=== PATIENT | female | born 1990 | race American Indian/Alaskan Native ===

== ENCOUNTER 2017-10-21 16:11 | Emergency (ER) | payer MEDICAID ==
[2017-10-21 16:19] VITALS: BP 110/72
[2017-10-21 16:43] LABS: Bacteria,Urine 1+ /HPF (Negative); Bilirubin,Urine NEG (Negative); Blood,Urine NEG (Negative); Color,Urine Yellow (Yellow); Mucus,Urine 2+ /HPF; Protein,Urine <15 mg/dL mg/dL (Negative); Urobilinogen,Urine < 2.0 mg/dL (<2.0)
[2017-10-21 16:45] LABS: HCG Qualitative,Urine Negative (Negative)
--- NOTE | 2017-10-21 17:32 | Emergency Department Report ---
ED Abdominal Pain HPI - General Chief Complaint: Abdominal Pain Stated Complaint: LEFT SIDE PAIN Time Seen by Provider: 10/21/17 17:21 Source: patient Mode of arrival: Ambulatory Limitations: No Limitations - History of Present Illness Initial Comments: Patient is a 27-year-old female who is presenting with some epigastric discomfort. Patient states for the last 3 nights she has had burning sensation in the epigastrium and bilateral upper quadrants left greater than right. Patient states she vomited once 3 days ago and stated it was acid sensation in her mouth. Patient states this burning sensation in his 8 at 10 in severity. The patient denies any increased pain after eating. She denies any fevers chills diarrhea or cough cold congestion sore throat or dysuria or vaginal discharge. - Related Data Previous Rx's Medication Instructions Recorded Last Taken Type Ondansetron [Zofran Odt] 4 mg PO Q8HR PRN #10 tab.rapdis 10/21/17 Unknown Rx Pantoprazole [Protonix TAB] 20 mg PO DAILY #20 tablet. 10/21/17 Unknown Rx traMADol [Ultram] 50 mg PO Q6HR PRN #10 tablet 10/21/17 Unknown Rx Allergies Allergy/AdvReac Type Severity Reaction Status Date / Time No Known Allergies Allergy Unverified 10/21/17 16:16 ED Review of Systems ROS: Stated complaint: LEFT SIDE PAIN Other details as noted in HPI Comment: All other systems reviewed and negative ED Past Medical Hx - Past Medical History Previous Medical History?: No - Surgical History Additional Surgical History: c/s - Social History Smoking Status: Never Smoker Substance Use Type: None - Medications Home Medications: Home Medications Medication Instructions Recorded Confirmed Last Taken Type Ondansetron [Zofran Odt] 4 mg PO Q8HR PRN #10 tab.rapdis 10/21/17 Unknown Rx Pantoprazole [Protonix TAB] 20 mg PO DAILY #20 tablet. 10/21/17 Unknown Rx traMADol [Ultram] 50 mg PO Q6HR PRN #10 tablet 10/21/17 Unknown Rx ED Physical Exam - General Limitations: No Limitations General appearance: alert, in no apparent distress - Head Head exam: Present: atraumatic, normocephalic - Eye Eye exam: Present: normal appearance - ENT ENT exam: Present: mucous membranes moist - Neck Neck exam: Present: normal inspection - Respiratory Respiratory exam: Present: normal lung sounds bilaterally. Absent: respiratory distress, wheezes, rales, rhonchi - Cardiovascular Cardiovascular Exam: Present: regular rate, normal rhythm. Absent: systolic murmur, diastolic murmur, rubs, gallop - GI/Abdominal GI/Abdominal exam: Present: soft, tenderness (mild epigastric and LUQ pain), normal bowel sounds. Absent: distended, guarding, rebound, rigid - Extremities Exam Extremities exam: Present: normal inspection - Back Exam Back exam: Present: normal inspection - Neurological Exam Neurological exam: Present: alert, oriented X3 - Psychiatric Psychiatric exam: Present: normal affect, normal mood - Skin Skin exam: Present: warm, dry, intact, normal color. Absent: rash ED Course Vital Signs 10/21/17 16:16 Temperature 98.6 F Pulse Rate 78 Respiratory 15 Rate Blood Pressure 110/72 O2 Sat by Pulse 97 Oximetry ED Medical Decision Making - Lab Data Lab Results 10/21/17 Range/Units 16:15 Urine Color Yellow (Yellow) Urine Turbidity Clear (Clear) Urine pH 5.0 (5.0-7.0) Ur Specific Brothers 1.025 (1.003-1.030) Urine Protein <15 mg/dl (Negative) mg/dL Urine Glucose (UA) Neg (Negative) mg/dL Urine Ketones Neg (Negative) mg/dL Urine Blood Neg (Negative) Urine Nitrite Neg (Negative) Urine Bilirubin Neg (Negative) Urine Urobilinogen < 2.0 (<2.0) mg/dL Ur Leukocyte Esterase Sm (Negative) Urine WBC (Auto) 1.0 (0.0-6.0) /HPF Urine RBC (Auto) 2.0 (0.0-6.0) /HPF U Epithel Cells (Auto) 2.0 (0-13.0) /HPF Urine Bacteria (Auto) 1+ (Negative) /HPF Urine Mucus 2+ /HPF Urine HCG, Qual Negative (Negative) - Medical Decision Making Patient's symptoms most consistent with GERD. Patient be started on Protonix and referred to GI. Patient discharged in stable condition. Critical care attestation.: If time is entered above; I have spent that time in minutes in the direct care of this critically ill patient, excluding procedure time. ED Disposition Clinical Impression: GERD (gastroesophageal reflux disease) Qualifiers: Esophagitis presence: esophagitis presence not specified Qualified Code(s): K21.9 - Gastro-esophageal reflux disease without esophagitis Disposition: TO HOME OR SELFCARE Is pt being admited?: No Does the pt Need Aspirin: No Condition: Stable Instructions: Peptic Ulcer (ED), Gastroesophageal Reflux Disease (ED), Diet for Ulcers and Gastritis (ED) Prescriptions: Ondansetron [Zofran Odt] 4 mg PO Q8HR PRN #10 tab.rapdis PRN Reason: Nausea And Vomiting Pantoprazole [Protonix TAB] 20 mg PO DAILY #20 tablet. traMADol [Ultram] 50 mg PO Q6HR PRN #10 tablet PRN Reason: Pain Referrals: ISMAEL ESPINOSA MD [Staff Physician] - 3-5 Days
== END 2017-10-21 17:39 | disposition home or self-care (01) ==
LOC: ED 16:11
DX: K21.9 Gastro-esophageal reflux disease without esophagitis (principal)
CPT/HCPCS: 81001; 81025; 99283

== ENCOUNTER 2017-10-25 22:31 | Emergency (ER) | payer MEDICAID ==
[2017-10-25] MEDS ORDERED: NACL 0.9% 1000 ML 1,000 ML IV ONE (22:49)
[2017-10-25 23:07] LABS: Basophils % (Auto) 0.7 % (0.0-1.8); Eosinophils # (Auto) 0.2 K/mm3 (0.0-0.4); Eosinophils % (Auto) 3.7 % (0.0-4.3); Hematocrit 38.7 % (30.3-42.9); Hemoglobin 13.2 gm/dl (10.1-14.3); Lymphocytes # (Auto) 1.7 K/mm3 (1.2-5.4); Lymphocytes % (Auto) 25.8 % (13.4-35.0); Mean Corpuscular HGB Conc 34 % (30-34); Mean Corpuscular Hemoglobin 29 pg (28-32); Mean Corpuscular Volume 85 fl (79-97); Monocytes # (Auto) 0.6 K/mm3 (0.0-0.8); Monocytes % (Auto) 8.6 % (0.0-7.3); Platelet Count 189 K/mm3 (140-440); Red Blood Count 4.54 M/mm3 (3.65-5.03); Red Cell Distribution Width 13.5 % (13.2-15.2)
[2017-10-25 23:21] LABS: Alanine Aminotransferase 17 units/L (7-56); Albumin 4.1 g/dL (3.9-5); BUN/Creatinine Ratio 19; Blood Urea Nitrogen 13 mg/dL (7-17); Hemolysis Index 18
[2017-10-26 00:06] LABS: HCG Qualitative,Urine Negative (Negative)
[2017-10-26] MEDS ORDERED: MORPHINE IV ONE (00:51)
[2017-10-26] MEDS ORDERED: ZOFRAN IV ONE (00:51)
[2017-10-26] MEDS ORDERED: PEPCID IV ONE (00:51)
--- NOTE | 2017-10-26 00:51 | Emergency Department Report ---
ED Abdominal Pain HPI - General Chief Complaint: Abdominal Pain Stated Complaint: ABD PAIN Time Seen by Provider: 10/25/17 23:54 Source: patient Mode of arrival: Ambulatory Limitations: No Limitations - History of Present Illness Initial Comments: Healthy 27-year-old female with epigastric pain radiating to the left flank with nausea vomiting diarrhea. Symptoms are worse at night. Seen recently in the ED. For dinner, she ate fried plantain, steak and rice. Complaint: abdominal pain -: Gradual, week(s) (1) Location: epigastric Radiation: L flank Migration to: L flank Severity: moderate Quality: cramping, sharp Consistency: intermittent Worsens With: other (worse at night) Associated Symptoms: nausea, vomiting, diarrhea - Related Data Previous Rx's Medication Instructions Recorded Last Taken Type Ondansetron [Zofran Odt] 4 mg PO Q8HR PRN #10 tab.rapdis 10/21/17 Unknown Rx Pantoprazole [Protonix TAB] 20 mg PO DAILY #20 tablet. 10/21/17 Unknown Rx traMADol [Ultram] 50 mg PO Q6HR PRN #10 tablet 10/21/17 Unknown Rx HYDROcodone/APAP 5-325 [[place] 1 each PO Q6HR PRN #15 tablet 10/26/17 Unknown Rx 5/325] Promethazine [Phenergan TAB] 25 mg PO Q6HR PRN #20 tab 10/26/17 Unknown Rx Allergies Allergy/AdvReac Type Severity Reaction Status Date / Time No Known Allergies Allergy Verified 10/25/17 22:45 ED Review of Systems ROS: Stated complaint: ABD PAIN Other details as noted in HPI Comment: All other systems reviewed and negative Constitutional: denies: fever, malaise Respiratory: denies: cough Cardiovascular: denies: chest pain ED Past Medical Hx - Past Medical History Previous Medical History?: No - Surgical History Past Surgical History?: Yes Additional Surgical History: c/s - Social History Smoking Status: Never Smoker Substance Use Type: None - Medications Home Medications: Home Medications Medication Instructions Recorded Confirmed Last Taken Type Ondansetron [Zofran Odt] 4 mg PO Q8HR PRN #10 tab.rapdis 10/21/17 Unknown Rx Pantoprazole [Protonix TAB] 20 mg PO DAILY #20 tablet. 10/21/17 Unknown Rx traMADol [Ultram] 50 mg PO Q6HR PRN #10 tablet 10/21/17 Unknown Rx HYDROcodone/APAP 5-325 [[place] 1 each PO Q6HR PRN #15 tablet 10/26/17 Unknown Rx 5/325] Promethazine [Phenergan TAB] 25 mg PO Q6HR PRN #20 tab 10/26/17 Unknown Rx ED Physical Exam - General Limitations: No Limitations General appearance: alert, in no apparent distress - Head Head exam: Present: atraumatic, normocephalic - Eye Eye exam: Present: normal appearance - ENT ENT exam: Present: mucous membranes moist - Neck Neck exam: Present: normal inspection - Respiratory Respiratory exam: Present: normal lung sounds bilaterally. Absent: respiratory distress, wheezes, rales, rhonchi - Cardiovascular Cardiovascular Exam: Present: regular rate, normal rhythm. Absent: systolic murmur, diastolic murmur, rubs, gallop - GI/Abdominal GI/Abdominal exam: Present: soft, tenderness (epigastric and right upper quadrant tenderness with voluntary guarding), guarding, normal bowel sounds. Absent: distended, rebound, rigid - Extremities Exam Extremities exam: Present: normal inspection - Back Exam Back exam: Present: normal inspection - Neurological Exam Neurological exam: Present: alert, oriented X3 - Psychiatric Psychiatric exam: Present: normal affect, normal mood - Skin Skin exam: Present: warm, dry, intact, normal color. Absent: rash ED Course Vital Signs 10/25/17 10/25/17 10/25/17 22:29 22:45 23:39 Temperature 97.7 F 97.7 F 97.7 F Pulse Rate 67 70 67 Respiratory 18 16 18 Rate Blood Pressure 122/76 122/76 Blood Pressure 114/73 [Left] O2 Sat by Pulse 97 96 99 Oximetry 10/26/17 10/26/17 10/26/17 00:00 01:16 02:00 Temperature Pulse Rate Respiratory Rate Blood Pressure 114/73 102/72 110/78 Blood Pressure [Left] O2 Sat by Pulse 97 99 100 Oximetry ED Medical Decision Making - Lab Data Result diagrams: 10/25/17 22:51 10/25/17 22:51 - Medical Decision Making Recurrent epigastric pain with nausea vomiting and diarrhea. Differential diagnosis includes peptic ulcer disease versus biliary colic versus PUD versus IBS. Cholelithiasis present on ultrasound today without acute cholecystitis. I do suspect an element of biliary colic. She does not appear to be at risk for peptic ulcer disease although PUD is a possibility with recurrent epigastric pain at night. 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 I will continue asked her to continue Protonix. Also encouraged low- fat diet. I prescribed [place] and promethazine. Critical care attestation.: If time is entered above; I have spent that time in minutes in the direct care of this critically ill patient, excluding procedure time. ED Disposition Clinical Impression: Cholelithiasis Disposition: DC-01 TO HOME OR SELFCARE Is pt being admited?: No Does the pt Need Aspirin: No Condition: Stable Instructions: Biliary Colic (ED) Prescriptions: HYDROcodone/APAP 5-325 [[place] 5/325] 1 each PO Q6HR PRN #15 tablet PRN Reason: Pain Promethazine [Phenergan TAB] 25 mg PO Q6HR PRN #20 tab PRN Reason: Nausea Referrals: BERHANE WOLF DO [Staff Physician] - 3-5 Days Time of Disposition: 02:31
[2017-10-26 01:22] LABS: Bilirubin,Urine NEG (Negative); Blood,Urine SM (Negative); Color,Urine Yellow (Yellow); Mucus,Urine FEW /HPF; Protein,Urine <15 mg/dL mg/dL (Negative); RBC,Urine < 1.0 /HPF (0.0-6.0); Urobilinogen,Urine < 2.0 mg/dL (<2.0)
--- NOTE | 2017-10-26 01:57 | Ultrasound Report ---
FINAL REPORT PROCEDURE: US ABDOMEN COMPLETE TECHNIQUE: Real-time sonography in multiple planes of the gallbladder fossa and CBD with imaging of the adjacent liver, pancreas, and right kidney was performed with image documentation. CPT 07617 HISTORY: epigastric pain COMPARISON: No prior studies are available for comparison. FINDINGS: Liver: Normal size and echotexture with no evidence of cystic or solid mass lesion. Gallbladder: There is a gallstone. There is sludge. Gallbladder wall measures 2.7 millimeters.. Intrahepatic bile ducts: Normal . Extrahepatic bile ducts: Common bile duct measures 2.9 millimeters.. Pancreas: Normal as visualized with suboptimal depiction of the pancreatic tail. Right kidney: There is a nonobstructing stone. There is no hydronephrosis.. Other: No free fluid. IMPRESSION: There is cholelithiasis and sludge. There is no cholecystitis or biliary ductal dilatation. Nonobstructing stone right kidney.
[2017-10-26 02:22] VITALS: BP 110/78
== END 2017-10-26 03:03 | disposition home or self-care (01) ==
LOC: ED 22:31
DX: K80.20 Calculus of gallbladder without cholecystitis without obstruction (principal)
CPT/HCPCS: 36415; 76700; 80053; 81001; 81025; 83690; 85025; 96361; 96374; 96375; 99284; J2270; J2405; J7030

== ENCOUNTER 2017-11-14 06:26 | Day surgery (SDC) | payer MEDICAID ==
[~2017-11-14 06:26] MED LIST: ANCEF/STERILE WATER 2 GM/20 ML 2 GM/20 ML SYRINGE IV SCH
[2017-11-14] MEDS ORDERED: ceFAZolin 2 GM in NACL 0.9% 100 ML IV ONE (07:00)
[2017-11-14] MEDS ORDERED: ZOFRAN IV PRN (07:28)
[2017-11-14] MEDS ORDERED: DILAUDID IV PRN (07:28)
[2017-11-14] MEDS ORDERED: NACL BACTERIOSTATIC INFILTRATI ONE (07:30)
[2017-11-14] MEDS ORDERED: SUBLIMAZE ONE (07:36)
[2017-11-14] MEDS ORDERED: DIPRIVAN 10 MG/ML IV ONE (07:36)
[2017-11-14] MEDS ORDERED: MARCAINE 0.5% 30 ML INFILTRATI ONE (07:47)
[2017-11-14] MEDS ORDERED: XYLOCAINE 1%/ EPI 1:100,000 INFILTRATI ONE ×2 (07:47→07:50)
--- NOTE | 2017-11-14 07:51 | Anesthesia Consultation ---
Anesthesia Consult and Med Hx Date of service: 11/14/17 - Airway Anesthetic Teeth Evaluation: Good, Partials Mental/Hyoid Distance: Adequate Mallampati Class: Class I Intubation Access Assessment: Good - Pulmonary Exam CTA: Yes - Cardiac Exam Cardiac Exam: RRR - Pre-Operative Health Status ASA Pre-Surgery Classification: ASA2 Proposed Anesthetic Plan: General
--- NOTE | 2017-11-14 07:51 | Anesthesia Day of Surgery ---
Anesthesia Day of Surgery - Day of Surgery Patient Examined: Yes Patient H&P Reviewed: Yes Patient is NPO: Yes
[2017-11-14] MEDS ORDERED: LACTATED RINGERS 1,000 ML IV SCH (08:00)
[2017-11-14] MEDS ORDERED: ANCEF/STERILE WATER 2 GM/20 ML 2 GM/20 ML SYRINGE IV SCH (08:00)
[2017-11-14] MEDS ORDERED: VERSED IV NR (08:00)
[2017-11-14] MEDS ORDERED: DECADRON ONE (08:20)
[2017-11-14] MEDS ORDERED: XYLOCAINE 1% 20 mL ONE (08:28)
[2017-11-14] MEDS ORDERED: NACL 0.9% IR ONE ×2 (08:51)
[2017-11-14] MEDS ORDERED: XYLOCAINE 1% 20 mL INFILTRATI ONE (08:52)
[2017-11-14] MEDS ORDERED: MARCAINE 0.5% INFILTRATI ONE ×2 (08:52)
[2017-11-14] MEDS ORDERED: ZEMURON IV ONE (09:00)
[2017-11-14] MEDS ORDERED: ZOFRAN ONE (09:03)
[2017-11-14] MEDS ORDERED: BLOXIVERZ ONE (09:03)
[2017-11-14] MEDS ORDERED: ROBINUL ONE (09:03)
--- NOTE | 2017-11-14 09:27 | Short Stay Summary ---
Short Stay Documentation Date of service: 11/14/17 - History Principal diagnosis: calculus of the gallbladder without cholecystitis without obstruction - Allergies and Medications Current Medications: Allergies No Known Allergies Allergy (Verified 11/13/17 10:57) Home Medications Medication Instructions Recorded Confirmed Last Taken Type No Known Home Medications [No 11/13/17 11/13/17 Unknown History Reported Home Medications] Active Medications Hydromorphone HCl (Dilaudid) 0.5 mg IV Q10MIN PRN PRN Reason: Pain , Severe (7-10) Stop: 11/14/17 13:00 Lactated Ringer's (Lactated Ringers) 1,000 mls @ 100 mls/hr IV DIRECT STEFFI Last Admin: 11/14/17 07:53 Dose: 100 mls/hr Cefazolin Sodium (Ancef/Sterile Water 2 Gm/20 Ml) 2 gm in 20 mls @ 80 mls/hr IV PREOP STEFFI Stop: 11/14/17 10:00 Midazolam HCl (Versed) 2 mg IV PREOP NR Stop: 11/14/17 23:59 Last Admin: 11/14/17 07:54 Dose: 2 mg Ondansetron HCl (Zofran) 4 mg IV ONCE PRN PRN Reason: Nausea And Vomiting Stop: 11/14/17 23:59 - Brief post op/procedure progress note Date of procedure: 11/14/17 Pre-op diagnosis: calculus of the gallbladder without cholecystitis obstruction Post-op diagnosis: same Procedure: Laparoscopic cholecystectomy Anesthesia: GETA, local Findings: gallbladder with adhesions to the omentum Surgeon: BERHANE WOLF Estimated blood loss: minimal Pathology: list (gallbladder) Specimen disposition: to lab Condition: stable - Hospital course Hospital course: Patient observed in the PACU and discharged in stable condition when criteria met. - Disposition Condition at discharge: Good Disposition: DC-01 TO HOME OR SELFCARE Short Stay Discharge Plan Activity: other (avoid heavy lifting for the next 2 weeks, do not drive if taking narcotic pain meds) Diet: regular Wound: open to air, other (May shower tomorrow, pat incisions dry, do not scrub. Do not submerge incisions in baths/hottubs/pools) Additional Instructions: Call surgeon's office if you have fever>100.4, drainage/redness of incision, intractable abdominal pain, nausea, or vomiting Follow up with: WOODY LIMA MD [Primary Care Provider] - 7 Days BERHANE WOLF DO [Staff Physician] - 14 Days Prescriptions: HYDROcodone/APAP 5-325 [[place] 5/325] 1 each PO Q6HR PRN #15 tablet PRN Reason: Pain
--- NOTE | 2017-11-14 11:14 | Operative Report ---
Operative Report Operative Report: Date of operation: 11/14/17 Preoperative diagnosis: Calculus of the gallbladder without cholecystitis or obstruction Postoperative diagnoses: Same as above Procedure performed: Laparoscopic cholecystectomy Surgeon: Angélica Thomas DO Anesthesia: Gen. endotracheal anesthesia Findings: Gallbladder with adhesions to omentum Specimen: Gallbladder Estimated blood loss: <10cc Complications: None Disposition: Stable to PACU HPI an indication: 27-year-old female who was referred to the surgery office for complaints of upper abdominal pain. Right upper quadrant ultrasound showed gallstones and patient's history was consistent with symptomatic cholelithiasis. All risks, benefits, alternatives to surgery were discussed with the patient and questions answered. The patient was then consented for a laparoscopic possible open cholecystectomy. Procedure in detail: The patient was identified in the preoperative area and taken back to the operating room, placed on the operating room table in supine position. After anesthesia was induced, the abdomen was prepped and draped in usual sterile fashion and timeout was performed. Local anesthetic was infiltrated into all of the skin incision sites. Veress needle was inserted through the umbilicus and the positioning confirmed using the saline drop test and the abdomen was then insufflated to 15 mmHg. Using a 11 blade a supraumbilical incision was made and 5 mm trocar placed using Optiview trocar. The abdomen was then inspected and there was no underlying injury to any of the abdominal contents. The veress needle was removed. An additional 12 mm subxyphoid port, and 2, 5mm RUQ ports were then placed under direct visualization. The patient was then placed into reverse Trendelberg and tilted to the left. The gallbladder was visualized and there were adhesions from the gallbladder to the omentum. The gallbladder was grasped and lifted cephalad. The cystic duct and artery were then carefully dissected and the critical view obtained, and the cystic duct and artery were the only two structures seen entering the gallbladder. Three clips were then placed on the proximal aspect of the cystic duct and one clip distally, and 2 clips on the cystic artery proximally and one distal. The cystic duct and cystic artery were then transected in between the clips. The gallbladder was dissected off the liver bed using hook electrocautery. The gallbladder was placed into a Endo Catch bag and removed from the abdomen via the 12mm port. The gallbladder fossa was then inspected and there was no identifiable bleeding or bile leakage. Hemostasis was ensured. The clips on the cystic duct and artery were visualized and intact. The patient was then placed into neutral position and Morison's pouch was irrigated and the irrigant returned clear. All ports were removed under direct visualization. The 12 mm port fascia was closed with an interrupted 0 Vicryl suture. Skin incisions were closed with 4-0 Monocryl subcuticular stitches and skin glue. All skin incisions were once again infiltrated with local anesthetic. At the end case all sponge, instrument, sharp counts were correct 2. The patient was awoken from anesthesia, extubated, taken to PACU in stable condition.
[2017-11-14] MEDS ORDERED: NORCO 5/325 PO SCH (11:45)
--- NOTE | 2017-11-14 13:59 | Post Anesthesia Evaluation ---
- Post Anesthesia Evaluation Patient Participated: Yes Airway Patent: Yes Stable Respiratory Function: Yes Nausea/Vomiting: No Temp > 96.8F: Yes Pain Manageable: Yes Adequeate Hydration: Yes Anesthesia Complications: No
[2017-11-14 18:30] VITALS: BP 111/63
== END 2017-11-14 13:00 | disposition home or self-care (01) ==
LOC: OR 06:26
PROVIDERS: ATTEND Surgery
DX: K80.10 Calculus of gallbladder with chronic cholecystitis without obstruction (principal); Z98.890 Other specified postprocedural states
CPT/HCPCS: 47562; 81025; 88304; A4217; J0690; J1100; J1170; J2250; J2405; J2704; J2710; J3010; J7120